=== PATIENT | female | born 1985 | race African-American/Black ===

== ENCOUNTER → 2021-03-02 | Outpatient (CLI) | payer BC ==
[~2021-03-02] MED LIST: ALPR0.5T PO; FERR240T2 PO; FLUP5TAB3 PO; TIZA4TAB2 PO; TRAZ-118 PO
--- NOTE | 2021-03-02 13:22 | EKG ---
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
[2021-03-02 13:28] LABS: BILIRUBIN,URINE NEGATIVE (NEG); CLARITY,URINE CLEAR; COLOR,URINE YELLOW; NITRITE,URINE NEGATIVE (NEG); PH,URINE 5.5 (<5.0-8.0); PROTEIN,URINE NEGATIVE (NEG-TRACE)
[2021-03-02 13:44] LABS: BASO % 1 % (0-3); EOS # 0.1 x10^3/uL (0.0-0.7); EOS % 4 % (0-3); HEMATOCRIT 34.4 % (36.0-47.0); HEMOGLOBIN 10.1 g/dL (12.0-15.5); LYMPH % 28 % (24-48); MEAN CORPUSCULAR HEMOGLOBIN 18 pg (25-35); MEAN CORPUSCULAR HGB CONC 30 g/dL (31-37); MEAN CORPUSCULAR VOLUME 61 fL (79-100); MONO # 0.4 x10^3/uL (0.0-1.1); MONO % 11 % (0-9); NEUT % 57 % (31-73); PLATELET COUNT 215 x10^3/uL (140-400); RED BLOOD COUNT 5.68 x10^6/uL (3.50-5.40); RED CELL DISTRIBUTION WIDTH 22.5 % (11.5-14.5); WHITE BLOOD COUNT 3.5 x10^3/uL (4.0-11.0)
[2021-03-02 13:45] LABS: ALBUMIN 3.9 g/dL (3.4-5.0); CALCIUM 8.7 mg/dL (8.5-10.1); CREATININE 0.8 mg/dL (0.6-1.0); GFR 97.7; POTASSIUM 3.9 mmol/L (3.5-5.1); TOTAL BILIRUBIN 0.2 mg/dL (0.2-1.0); TOTAL PROTEIN 7.8 g/dL (6.4-8.2)
[2021-03-02 13:58] LABS: BACTERIA,URINE 0 /HPF (0-FEW); RBC,URINE 0 /HPF (0-2); WBC,URINE OCC /HPF (0-4)
[2021-03-02 15:08] LABS: ANISOCYTOSIS MOD; HYPOCHROMIA MOD; MICROCYTOSIS MOD
[2021-03-02 15:09] LABS: PLT ESTIMATE ADEQUATE (ADEQUATE)
== END ==
LOC: SURGPAT 12:18
PROVIDERS: ATTEND Obstetrics & Gynecology
DX: Z01.818 Encounter for other preprocedural examination (principal); D64.9 Anemia, unspecified
CPT/HCPCS: 36415; 80053; 81001; 85025; 93005

== ENCOUNTER → 2021-03-06 | Outpatient (CLI) | payer BC | LOC: LAB 11:01 | PROVIDERS: ATTEND Obstetrics & Gynecology | DX: Z01.812 Encounter for preprocedural laboratory examination (principal); D64.9 Anemia, unspecified; Z20.822 Contact with and (suspected) exposure to COVID-19 | CPT/HCPCS: U0003; U0005 ==

== ENCOUNTER 2021-03-08 06:06 | Observation (INO) | payer BC ==
[2021-03-02 13:01] VITALS: BP 113/59
[~2021-03-08] VITALS: Ht 165.1 cm; Wt 145.0 kg
[2021-03-08] VITALS (9 sets, daily range): BP systolic 83–107; BP diastolic 41–58
[~2021-03-08 06:06] MED LIST changes: +IV RINGERS,LACTATED 1000ML 1,000 ML IV SCH; +PROCHLORPERAZINE 10 MG/2 ML VIAL. IVP PRN; +ceFAZolin SODIUM 3 GM in IV DEXTROSE 5% 100ML 100 ML IV PRN; +fentaNYL PF VIAL 100 MCG/2 ML VIAL IVP PRN
[2021-03-08] MEDS ORDERED: ESTROGENS, CONJ VAGINAL CREAM 30GM TUBE. ONE (07:04)
[2021-03-08] MEDS ORDERED: BUPIVACAINE-EPI 0.25%-1:200000 MPF 30 ML VIAL. ONE (07:04)
[2021-03-08] MEDS ORDERED: INDIGOTINDISULFONATE SODIUM 40 MG/5 ML AMPUL. ONE (07:04)
[2021-03-08] MEDS ORDERED: LIDOCAINE 2% PF 5 ML VIAL. ONE (07:07)
[2021-03-08] MEDS ORDERED: PROPOFOL 10 MG/ML (20ML) VIAL. IV ONE (07:07)
[2021-03-08] MEDS ORDERED: ONDANSETRON PF 4 MG/2 ML VIAL. ONE (07:08)
[2021-03-08] MEDS ORDERED: ROCURONIUM 50 MG/5 ML VIAL. ONE (07:08)
[2021-03-08] MEDS ORDERED: FAMOTIDINE 20 MG/2 ML VIAL ONE (07:08)
[2021-03-08] MEDS ORDERED: DEXAMETHASONE SOD PHOS 4 MG/ML VIAL ONE (07:09)
[2021-03-08] MEDS ORDERED: PHENYLEPHRINE in 0.9% NACL PF 1 MG/10 ML SYRINGE. IV ONE (07:09)
[2021-03-08] MEDS ORDERED: fentaNYL PF VIAL 250 MCG/5 ML VIAL ONE (07:17)
[2021-03-08] MEDS ORDERED: SUCCINYLCHOLINE 200 MG/10 ML VIAL. ONE (07:22)
[2021-03-08] MEDS ORDERED: MIDAZOLAM HCL/PF 2 MG/2 ML VIAL. ONE (07:30)
[2021-03-08] MEDS ORDERED: NEOSTIGMINE METHYLSULFATE 5 MG/5 ML SYRINGE. ONE (09:04)
[2021-03-08] MEDS ORDERED: GLYCOPYRROLATE 1 MG/5 ML VIAL. ONE (09:05)
[2021-03-08] MEDS ORDERED: 0.9 % SODIUM CHLORIDE 10 ML DISP.SYRIN. IV PRN (09:45)
[2021-03-08] MEDS ORDERED: HYDROcodone/APAP 5/325MG 1 TAB TABLET PO PRN (09:45)
[2021-03-08] MEDS ORDERED: diphenhydrAMINE 50 MG/ML VIAL IV PRN (09:45)
[2021-03-08] MEDS ORDERED: ZOLPIDEM 5 MG TABLET. PO PRN (09:45)
[2021-03-08] MEDS ORDERED: NALOXONE 0.4 MG/ML VIAL. IV PRN (09:45)
[2021-03-08] MEDS ORDERED: MAG HYDROX/ALUMINUM HYD/SIMETH 30 ML ORAL.SUSP PO PRN (09:45)
[2021-03-08] MEDS ORDERED: MORPHINE SULFATE 2 MG/ML INJ. IV PRN (09:45)
[2021-03-08] MEDS ORDERED: CALCIUM CARBONATE 500 MG TAB.CHEW PO PRN (09:45)
[2021-03-08] MEDS ORDERED: SIMETHICONE 80 MG TAB.CHEW PO PRN (09:45)
[2021-03-08] MEDS ORDERED: LACTULOSE 20 GM/30 ML SOLUTION. PO PRN (09:45)
[2021-03-08] MEDS ORDERED: MAGNESIUM HYDROXIDE 2,400 MG/30 ML ORAL.SUSP. PO PRN (09:45)
[2021-03-08] MEDS ORDERED: ONDANSETRON PF 4 MG/2 ML VIAL. IV PRN (09:45)
[2021-03-08] MEDS ORDERED: diphenhydrAMINE HCL 25 MG CAPSULE PO PRN (09:45)
[2021-03-08] MEDS ORDERED: KETOROLAC 30 MG/ML VIAL. ONE (09:50)
[2021-03-08] MEDS: KETOROLAC 30 MG/ML VIAL. IVP PRN (09:52)
[2021-03-08] MEDS ORDERED: SEVOFLURANE 61 TO 120 MINUTES. IH ONE (09:54)
--- NOTE | 2021-03-08 09:58 | PDOC ---
BRIEF OPERATIVE NOTE Date: Mar 08, 2021 Pre-Op Diagnosis enlarged fibriod uterus,menorrhagia to anemia Post-Op Diagnosis same Procedure Performed LAVH, bilateral salpingectomy, lysis of adhesions Surgeon Dr. Quiana Baeza Shell[employer] Bed Worker ENZO Red Anesthesiologist Dr. Adam Anesthesia Type: General Blood Loss 100cc IV Fluid 1200cc Urine Output 30cc clear but concentrated via castillo Specimens Obtained cervix, uterus, bilateral tubes (left one came out as distal segment with prior tubal ligation) Findings enlarged, RV fibroid uterus, evidence of prior tubal, normal bilateral ovaries, grossly normal bowel, normal appendix visualized, normal RUQ, small omental adhesion under umbilical area to ant abdominal wall Complications none Operative Note [id number] QUIANA BAEZA MD Mar 08, 2021 09:57
[2021-03-08] MEDS ORDERED: MORPHINE SULFATE 2 MG/ML INJ. ONE (10:17)
[2021-03-08] MEDS: MORPHINE SULFATE 2 MG/ML INJ. IVP PRN ×2 (10:23→10:32)
[2021-03-08] MEDS ORDERED: HYDROmorphone 2 MG/ML VIAL ONE (10:33)
[2021-03-08] MEDS: HYDROmorphone 2 MG/ML VIAL IVP PRN ×4 (10:37→11:13)
--- NOTE | 2021-03-08 11:11 | OP ---
DATE OF SURGERY: 03/08/2021 PREOPERATIVE DIAGNOSES: 1. Enlarged fibroid uterus with menorrhagia. 2. Anemia. POSTOPERATIVE DIAGNOSES: 1. Enlarged fibroid uterus with menorrhagia. 2. Anemia. PROCEDURES: Laparoscopic-assisted vaginal hysterectomy, bilateral salpingectomy and lysis of adhesions. SURGEON: Quiana Baeza MD [employer] TRUCK DRIVER: ENZO Red ANESTHESIOLOGIST: Dr. Adam. ANESTHESIA: General. BLOOD LOSS: 100 mL URINE OUTPUT: 30 mL, but clear and concentrated via Cook. IV FLUIDS: 1200 mL of crystalloid. SPECIMENS: Cervix, uterus, bilateral tubes. The left one came out as the distal segment. As with the prior tubal ligation, it was from the proximal. The right one did come out with the specimen and the proximal portion of the left came out with the specimen. FINDINGS: An enlarged retroverted fibroid uterus. Evidence of prior tubal ligation, normal bilateral ovaries. Grossly normal bowel with a normal appendix visualized. Right upper quadrant appeared okay. She had the small omental adhesions just in front of the umbilical area on the anterior abdominal wall that were taken down. COMPLICATIONS: None. DESCRIPTION OF PROCEDURE: This patient was taken to the operating room where general anesthesia was placed. The patient was placed in dorsal lithotomy position in [facility]. The patient's abdomen and vagina were both prepped and draped in the normal sterile fashion and a Cook catheter had been inserted under sterile technique. Upon my arrival, a timeout was performed. Once everyone agreed on the patient, the site, the procedure, the antibiotics, procedure was initiated. A bivalve speculum was placed in the patient's vagina. A single-tooth tenaculum was used to grasp the anterior lip of the cervix. A 10-12 mL of 0.25% Marcaine with epinephrine was used to circumferentially inject around the cervix for both hemodissection and hemostatic purposes later. The Valtchev uterine manipulator was placed through the endocervical os, locked on the single tooth tenaculum and the bivalve speculum was then removed. Top gloves were discarded and changed. Attention was then turned to the abdomen where a small supraumbilical skin incision was made with a scalpel and carried down to the underlying layer with a curved Che. A 5 mm Visiport was used to directly enter the abdominal cavity. She had a very thin abdominal wall and I think it was actually almost thin even just with the Che going through, so did not have to go through hardly anything. We could see omentum came immediately out and opening patient pressure was 2 mmHg. Carbon dioxide gas was used to appropriately insufflate the abdominal cavity to maintain a pressure of 15 mmHg. The patient was placed in Trendelenburg position, overhead lights were dimmed. Right and left lower quadrant ports were placed under direct visualization. There were no adhesions laterally so transilluminating the abdominal wall finding an area clear of any vasculature, making a small incision and placing the 5 mm disposable trocar and under direct visualization without difficulty. A 4-5 mL of air was placed in these trocar cuff. The camera was moved laterally to look at the umbilical one. Once it was found to be clear, it was also insufflated with 4-5 mL of air. At this point, the left tube and ovary were identified and elevated. The ureter was seen coursing low in the pelvis, staying above the ovary below the tube doing a salpingectomy with the LigaSure. The distal portion did come off. It was easily removed through one of the ports and passed off. The proximal portion was closed and remained with the specimens so it was just pulled over crossing the left uteroovarian pedicle and crossing the left round ligament, cauterizing and cutting with the LigaSure. Then, attention was turned to the right side where the right tube and ovary were elevated. I could see the appendix on the side normal. I looked at the right upper quadrant, which grossly looked normal and the bowel. So, elevating it, finding the ureter also coursing on the side well below where we needed to be going below the tube above the ovary doing a salpingectomy as she was young and wishing to retain her ovaries if they were normal, which they were so doing a salpingectomy. Then crossing the right uteroovarian pedicle and the right round ligament. At this point, the uterus was pushed cephalad. The bladder was elevated. There was some evidence of some scarring here from a , but this was easily taken down with the monopolar hook and the bladder was taken down sharply. Once the bladder was down, the uterine vessels were obtained on the right side, cauterizing and cutting and then staying inside this pedicle, hugging posteriorly on the cervix going through the cardinal and broad ligaments down to the level of the uterosacral then crossing contralaterally to the patient's left side, hugging the cervix and uterus, staying right on it getting the vessel staying inside that pedicle going through cardinal and broad down to the level of the uterosacral. The uterus was completely blanched and free at this point, so it was decided to remove all instruments and go vaginally. The Valtchev and single tooth were removed. A weighted speculum was placed in the patient's vagina. Thyroid Arcelia clamps were placed on the anterior and posterior lips of the cervix respectively. A scalpel was used to make a circumferential incision in the cervix. An open Ray-Aury 4 x 4 was used to gently push up the anterior bladder peritoneum and the anterior cul-de-sac was digitally and bluntly entered after skeletonizing it sharply using the plastic tip of the Yankauer to move it up off the cervix sharply, then bluntly. It was used to just gently push it up and get down. The Ray-Aury was removed and the curved [place] was placed in the anterior cul-de-sac. At this point, the cervix was elevated and the posterior cul-de-sac was entered sharply with curved Tsai scissors. A #0 Vicryl stitch was used to secure the posterior peritoneum here into the vaginal cuff. It was tagged with a curved Che clamp. The needle was cut and passed off. The short weighted vaginal speculum was removed and replaced with the long weighted Mihir speculum in the posterior cul-de-sac. Curved Misty clamps x 2 were placed on the patient's left uterosacral ligament where they were doubly clamped with curved Heane[place], cut with curved Tsai scissors and suture ligated x 2 with 0 Vicryl. Second one was taken through the vaginal cuff, securing the uterosacral ligament to the vaginal cuff. The needle was cut and passed off and it was tagged with a straight Che clamp. At this point, the exact same thing was done on the patient's right side, double clamping the uterosacrals with curved Heaneys cutting with curved Tsai scissors and suture ligating x 2 with 0 Vicryl, taking the second one through the vaginal cuff securing uterosacral ligament to the vaginal cuff, tagging it with a straight Che clamp, cutting and passing the needle off. At this point, the remaining pedicle on the right side was delineated with the curved mixture and the vaginal LigaSure was used to cauterize and cut the remaining pedicle. Then, it was moved to the left side, a right angle Mixter was taken around the remaining pedicle to delineate it and then the vaginal LigaSure was used to cauterize it. It was a larger uterus, so a kind of wedge down to a certain point. I then took a tenaculum and was able to reach posteriorly up at the cervix and wedged out. Cervix, uterus, bilateral tubes were delivered in total and passed off for permanent pathology. A long Allis was used to grasp the anterior bladder peritoneum. A sponge stick was used to examine the pedicles, which appeared to be dry, so the long weighted Mihir speculum was removed and replaced with the short weighted vaginal speculum. Again, 2-0 Vicryl was taken through the anterior bladder peritoneum, left uterosacral ligament, posterior peritoneum and right uterosacral ligament, thus closing the peritoneum in a pursestring like fashion. Once this was done, the right and left uterosacral tags were clipped. The cuff was closed in an anterior to posterior running locked fashion and tied to the posterior cuff tagged with excellent results. There was no active bleeding. The cuff was hemostatic and looked good. All instruments counts were correct x 2 by OR personnel below before going above. Attention was turned back above where the overhead lights were dimmed. She was placed back in Trendelenburg. Gas was reinsufflated. Copious irrigation revealed hemostasis. Clear fluid returned. There was nothing in the cul-de-sac, nothing in either right or left pericolic gutter. Everything was dry. Tisseel was placed over the cuff with excellent results. The 4-5 mL of air was taken out of all three trocars. The right and left ones were removed under direct visualization, they were hemostatic. Gas was released from the umbilical port and then it was removed as well. All 3 port sites were closed with 4-0 nylon at the skin and injected with 0.25% Marcaine with epinephrine. She was awakened from anesthesia and brought to recovery room in stable condition. JULIANO/ANTHONY KRAMER: Ash TID: [id number]
[2021-03-08] MEDS: oxyCODONE/APAP 5/325 1 TAB TABLET PO PRN ×2 (15:23→19:26)
[2021-03-09 00:43] VITALS: BP 105/42
[2021-03-09] MEDS: oxyCODONE/APAP 5/325 1 TAB TABLET PO PRN ×3 (00:45→09:30)
--- NOTE | 2021-03-09 00:49 | NUR ---
Replaced bandage over umbilicus because it was not adhering to skin. Bandage was saturated with blood, but patient did not appear to be actively bleeding.
[2021-03-09 05:37] VITALS: BP 99/49
[2021-03-09 07:13] LABS: CALCIUM 8.3 mg/dL (8.5-10.1); CREATININE 0.9 mg/dL (0.6-1.0); GFR 85.2; POTASSIUM 3.8 mmol/L (3.5-5.1)
[2021-03-09] MEDS: KETOROLAC 30 MG/ML VIAL. IVP PRN (08:09)
--- NOTE | 2021-03-09 08:46 | PDOC ---
SURGICAL PROGRESS NOTE DATE: 03/09/21 TIME: 08:26 Subjective Doing well. Not sure pain meds are working that great but did make her feel loopy and sleep. Voiding without catheter, scant VB, tolerating regular diet without problems. Vital Signs Vital Signs Date Time Temp Pulse Resp B/P (MAP) Pulse Ox O2 Delivery O2 Flow Rate FiO2 03/09/21 05:39 16 100 Room Air 03/09/21 05:37 98.4 72 99/49 (66) 98.4 03/08/21 10:32 6.0 I&O Intake and Output 03/09/21 07:00 Intake Total 2400 ml Output Total 1405 ml Balance 995 ml Intake Oral 800 ml IV Total 1600 ml Output Urine Total 1305 ml Estimated Blood Loss 100 ml PATIENT HAS A MELO: No General: Alert, Oriented X3, Cooperative, No acute distress HEENT: Atraumatic Heart: Regular rate Abdomen: Soft, Other (appropriate discomfort and all port sites c/d/i) Extremities: No clubbing, No cyanosis, No edema, No tenderness/swelling Skin: No rashes, No breakdown Neuro: Normal speech Psych/Mental Status: Mental status NL, Mood NL Labs Laboratory Tests Test 03/08/21 05:32 03/09/21 06:40 Bedside Urine HCG, Qualitative Hcg negative (Negative) Hematocrit 29.4 % (36.0-47.0) Sodium Level 140 mmol/L (136-145) Potassium Level 3.8 mmol/L (3.5-5.1) Chloride Level 108 mmol/L (98-107) Carbon Dioxide Level 25 mmol/L (21-32) Anion Gap 7 (6-14) Blood Urea Nitrogen 7 mg/dL (7-20) Creatinine 0.9 mg/dL (0.6-1.0) Estimated GFR (Cockcroft-Gault) 85.2 Glucose Level 96 mg/dL (70-99) Calcium Level 8.3 mg/dL (8.5-10.1) Laboratory Tests Test 03/09/21 06:40 Hematocrit 29.4 % (36.0-47.0) Sodium Level 140 mmol/L (136-145) Potassium Level 3.8 mmol/L (3.5-5.1) Chloride Level 108 mmol/L (98-107) Carbon Dioxide Level 25 mmol/L (21-32) Anion Gap 7 (6-14) Blood Urea Nitrogen 7 mg/dL (7-20) Creatinine 0.9 mg/dL (0.6-1.0) Estimated GFR (Cockcroft-Gault) 85.2 Glucose Level 96 mg/dL (70-99) Calcium Level 8.3 mg/dL (8.5-10.1) I have reviewed the following labs, vitals,nursing Cardiovascular: No pertinent hx Pulmonary: No pertinent hx GI: No pertinent hx Heme/Onc: Anemia NOS Rheumatologic: No pertinent hx Infectious disease: No pertinent hx ENT: No pertinent hx Assessment/Plan POD#1 s/p LAVH/bilateral salpingectomy/lysis of adhesions Routine PO care d/c to home later today NPV x 6 weeks light/limited activity x 2 weeks keep scheduled follow up with me in office next week already has narcotics pain med at home ok to alternate OTC ibuprofen as needed also NO driving on narcotic pain med Call or return sooner for any other questions or concerns not limited to but inc luding pain unrelieved with pain meds, increased or unexplained VB or T>100.4 Justicifation of Admission Dx: Justifications for Admission: Justification of Admission Dx: Yes SUNNI LOPEZ MD Mar 09, 2021 08:46
--- NOTE | 2021-03-09 08:48 | PDOC3 ---
Discharge Summary Visit Information Date of Admission: Mar 08, 2021 Date of Discharge: Mar 09, 2021 Final Diagnosis menorrhagia, anemia, enlarged fibroid uterus Brief Hospital Course Allergies Allergies Coded Allergies Type Severity Reaction Last Updated Verified No Known Drug Allergies 03/08/21 No Vital Signs Vital Signs Date Time Temp Pulse Resp B/P (MAP) Pulse Ox O2 Delivery O2 Flow Rate FiO2 03/09/21 05:39 16 100 Room Air 03/09/21 05:37 98.4 72 99/49 (66) 98.4 03/08/21 10:32 6.0 Lab Results Laboratory Tests Test 03/08/21 05:32 03/09/21 06:40 Bedside Urine HCG, Qualitative Hcg negative (Negative) Hematocrit 29.4 % (36.0-47.0) Sodium Level 140 mmol/L (136-145) Potassium Level 3.8 mmol/L (3.5-5.1) Chloride Level 108 mmol/L (98-107) Carbon Dioxide Level 25 mmol/L (21-32) Anion Gap 7 (6-14) Blood Urea Nitrogen 7 mg/dL (7-20) Creatinine 0.9 mg/dL (0.6-1.0) Estimated GFR (Cockcroft-Gault) 85.2 Glucose Level 96 mg/dL (70-99) Calcium Level 8.3 mg/dL (8.5-10.1) Laboratory Tests Test 03/09/21 06:40 Hematocrit 29.4 % (36.0-47.0) Sodium Level 140 mmol/L (136-145) Potassium Level 3.8 mmol/L (3.5-5.1) Chloride Level 108 mmol/L (98-107) Carbon Dioxide Level 25 mmol/L (21-32) Anion Gap 7 (6-14) Blood Urea Nitrogen 7 mg/dL (7-20) Creatinine 0.9 mg/dL (0.6-1.0) Estimated GFR (Cockcroft-Gault) 85.2 Glucose Level 96 mg/dL (70-99) Calcium Level 8.3 mg/dL (8.5-10.1) Brief Hospital Course Ms. Negron is a 35 old female who presented with enlarged fibroid uterus with menorrhagia to anemia. She wanted definitive therapy and underwent an LAVH/bilateral salpingectomy with lysis of adhesions yesterday. She has had an unremarkable postoperative course. She is voiding without catheter, eating a regular diet, ambulating ok and desiring to go home. Assessment Assessment POD#1 s/p LAVH/bilateral salpingectomy/lysis of adhesions Routine PO care d/c to home later today NPV x 6 weeks light/limited activity x 2 weeks keep scheduled follow up with me in office next week already has narcotics pain med at home ok to alternate OTC ibuprofen as needed also NO driving on narcotic pain med Call or return sooner for any other questions or concerns not limited to but including pain unrelieved with pain meds, increased or unexplained VB or T>100.4 Discharge Information Condition at Discharge: Stable Follow Up: Weeks Disposition/Orders: D/C to Home Scheduled Alprazolam (Xanax) 0.5 Mg Tablet, 1 TAB PO DAILY for na, #30 (Reported) Entered as Reported by: VINNIE BARAHONA on 03/02/211255 Last Taken: Unknown Dose on 03/08/21 0500 Last Action: Last Taken Edited on 03/08/21632 by VINNIE BARAHONA Ferrous Gluconate (Ferrous Gluconate) 240 Mg Tablet, 1 TAB PO DAILY for supplement for 30 Days, #30 Ref 0 (Reported) Entered as Reported by: VINNIE BARAHONA on 03/02/211255 Last Taken: Unknown Dose on 03/07/21 Last Action: Last Taken Edited on 03/08/21632 by VINNIE BARAHONA Fluphenazine Hcl (Fluphenazine Hcl) 5 Mg Tablet, 1 TAB PO QHS for na, #30 Ref 1 (Reported) Entered as Reported by: VINNIE BARAHONA on 03/02/211255 Last Taken: Unknown Dose on 03/08/21 0500 Last Action: Last Taken Edited on 03/08/21632 by VINNIE BARAHONA Tizanidine Hcl (Tizanidine Hcl) 4 Mg Tablet, 2 TAB PO QHS for muscle relaxer, #30 (Reported) Entered as Reported by: VINNIE BARAHONA on 03/02/211255 Last Taken: Unknown Dose on 03/07/21 Last Action: Last Taken Edited on 03/08/21632 by VINNIE BARAHONA Trazodone Hcl (Trazodone Hcl) 50 Mg Tablet, 1 TAB PO QHS for sleep, #30 Ref 1 (Reported) Entered as Reported by: VINNIE BARAHONA on 03/02/21 1256 Last Taken: Unknown Dose on 03/07/21 Last Action: Last Taken Edited on 03/08/21 0925 by VINNIE BARAHONA Patient Instructions Patient Instructions POD#1 s/p LAVH/bilateral salpingectomy/lysis of adhesions Routine PO care d/c to home later today NPV x 6 weeks light/limited activity x 2 weeks keep scheduled follow up with me in office next week already has narcotics pain med at home ok to alternate OTC ibuprofen as needed also NO driving on narcotic pain med Call or return sooner for any other questions or concerns not limited to but including pain unrelieved with pain meds, increased or unexplained VB or T>100.4 Justicifation of Admission Dx: Justifications for Admission: Justification of Admission Dx: Yes SUNNI LOPEZ MD Mar 09, 2021 08:48
[2021-03-09 09:35] VITALS: BP 118/61
== END 2021-03-09 09:55 | disposition home or self-care (01) ==
LOC: SURG 06:06 → 3 SO LND 09:45
PROVIDERS: ADMIT Obstetrics & Gynecology; ATTEND Obstetrics & Gynecology
DX: N92.0 Excessive and frequent menstruation with regular cycle (principal); Z20.822 Contact with and (suspected) exposure to COVID-19; D25.9 Leiomyoma of uterus, unspecified; D64.9 Anemia, unspecified; K66.0 Peritoneal adhesions (postprocedural) (postinfection); Z98.51 Tubal ligation status
CPT/HCPCS: 36415; 58552; 80048; 81025; 85014; 86850; 86900; 86901; 96374; A4314; A4930; A6219; G0378; G0379; J0330; J0690; J0780; J1100; J1170; J1885; J2250; J2270; J2405; J2704; J2710; J3010; J3480; J3490; 88307; A4351; A4657; J2370